=== PATIENT | male | born 1995 | race Caucasian/White ===

== ENCOUNTER 2017-10-25 17:15 | Emergency (ER) | payer OTHER ==
[~2017-10-25] VITALS: Ht 185.4 cm; Wt 84.0 kg
[2017-10-25] MEDS ORDERED: METOCLOPRAMIDE HCL 10 MG/2 ML VIAL IV PUSH ONE (17:30)
[2017-10-25] MEDS ORDERED: MORPHINE SULFATE 4 MG/ML INJ IV PUSH ONE (17:30)
[2017-10-25] MEDS ORDERED: PROPOFOL 200 MG/20 ML AMP IV ONE (17:30)
[2017-10-25 17:32] VITALS: BP 128/71; PULSE 73; RESP 16; TEMP 97.9; O2SAT 100
[2017-10-25] MEDS ORDERED: ADVA100A INH (17:37)
--- NOTE | 2017-10-25 18:14 | RADRPT ---
EXAM DATE: 10/25/2017 5:58 PM EDT AGE/SEX: 22 years / Male INDICATIONS: Right knee pain, injured while skim boarding. CLINICAL DATA: This is the patient's initial encounter. Patient reports that signs and symptoms have been present for 1 day and indicates a pain score of 10/10. MEDICAL/SURGICAL HISTORY: None. None. COMPARISON: No comparison studies are available. FINDINGS: AP and lateral views of the right knee demonstrate no acute fracture. Mineralization is normal. The p atella appears laterally displaced on the oblique frontal projection. No joint effusion is identified . There is prepatellar soft tissue swelling. No radiopaque foreign body is identified. Some type of o verlying bandages are present posteriorly. CONCLUSION: Lateral dislocation of the patella with prepatellar soft tissue swelling. No fracture is identified. Electronically signed by: Alfredo Rollins MD 10/25/2017 6:13 PM EDT
[2017-10-25] MEDS ORDERED: HYDROmorphone HCL PF 2 MG/ML VIAL IV PUSH ONE (18:15)
--- NOTE | 2017-10-25 18:40 | PD ---
Data Data Last Documented VS Vital Signs Date Time Temp Pulse Resp B/P (MAP) Pulse Ox O2 Delivery O2 Flow Rate FiO2 10/25/17 17:32 97.9 73 16 128/71 (90) 100 Room Air Orders Orders Knee, Ltd (1 Or 2vws) (10/25/17 17:29) Ice/Cold Pack (10/25/17 17:29) Morphine Inj (Morphine Inj) (10/25/17 17:30) Metoclopramide Inj (Reglan Inj) (10/25/17 17:30) Propofol 200 Mg/20 Ml Inj (Diprivan 200 (10/25/17 17:30) Iv Access Insert/Monitor (10/25/17 17:30) Hydromorphone Pf Inj (Dilaudid Pf Inj) (10/25/17 18:15) Knee, Ltd (1 Or 2vws) (10/25/17 ) Splint Or Brace Apply/Monitor (10/25/17 18:32) Crutches (10/25/17 18:40) MDM Medical Record Reviewed: Yes Supervised Visit with JESUS: Yes Narrative Course I, Dr. Shaikh, have reviewed the advance practice practitioner's documentation and am in agreement, met with the patient face to face, made the diagnosis, and the medical decision making was done by me. *My assessment and Findings: Patient is a 22-year-old male who [place], presents the emergency room complaints of right knee pain. Patient with dislocation of the patella in the right lower extremity. Last Impressions Knee X-Ray 10/25/17 7219 Signed Impressions: CONCLUSION: Lateral dislocation of the patella with prepatellar soft tissue swelling. No fr acture is identified. After informed consent, verbal as well as written consent for conscious sedation and reduction of patella was obtained. Patient has a successful reduction of the patella. Procedures Procedure Narrative After the risks and benefits were discussed the following procedure was performed: MODERATE SEDATION: The patient was placed on a monitor tech and pulse oximetry. An ambu bag and suction was immediately available at bedside. The patient was monitored by the nurse. Oxygen saturation , heart rate and blood pressure were monitored. Procedural sedation was acheived using 90mg of propofol . The patient was observed until awake and alert. Procedural Sedation time in attendance was 15 minutes. Reduction of right patella After risks and benefits were discussed with the patient, patient was sedated with propofol, reduction of patella was performed - patella was laterally dislocated - it was reduced without difficultly, patient tolerated procedure well Diagnosis Primary Impression: Patellar dislocation Qualified Codes: S83.004A - Unspecified dislocation of right patella, initial encounter Patient Instructions: Narcotic given in the ED, Moderate Sedation (ED), General Instructions Additional Instruction: Please provide patient with a copy of his studies at discharge Please follow up with your primary care doctor in 2-3 days Return to the ER if symptoms worsen or progress Return to the ER as needed Follow up with orthopedic surgery Karen Shaikh DO Oct 25, 2017 18:40
[2017-10-25] MEDS ORDERED: DICL75TA PO (18:59)
--- NOTE | 2017-10-25 19:07 | RADRPT ---
EXAM DATE: 10/25/2017 7:01 PM EDT AGE/SEX: 22 years / Male INDICATIONS: Status post reduction. CLINICAL DATA: This is the patient's subsequent encounter. Patient reports that signs and symptoms h ave been present for 1 day and indicates a pain score of 2/10. MEDICAL/SURGICAL HISTORY: None. None. [place] [facility] [place]1 OR 2 VWS[place] 10/25/2017. . FINDINGS: AP and lateral views of the right leg with overlying splint in place demonstrates reduction of the pa tellar dislocation. Patella now overlies the midline. No fracture is identified. There is a small wil nt effusion. Mild prepatellar soft tissue swelling remains present. There is likely an osteochondral lesion in the medial femoral condyle. CONCLUSION: 1. Interval reduction of the patellar dislocation. No acute fracture is identified. Stable mild prep atellar soft tissue swelling is present. 2. There is a small joint effusion. 3. Suspected osteochondral lesion in the medial femoral condyle. Electronically signed by: Alfredo Rollins MD 10/25/2017 7:06 PM EDT
--- NOTE | 2017-10-25 19:14 | PD ---
HPI Chief Complaint: Injury Time Seen by Provider: 17:29 Travel History International Travel<30 days: No Contact w/Intl Traveler<30days: No Traveled to known affect area: No History of Present Illness HPI 22-year-old male that presents to the ED for evaluation of his right knee. Patient had a fall while skim boarding and his leg went the wrong way. Pain is 8 /10. Nothing given by ambulance. Obvious deformity noted on knee. Brought by [facility] on backboard and splint. Denies any other injury. No prior injury. History of asthma. No radiation of the pain. PFSH Past Medical History Asthma: Yes Past Surgical History Other Surgery: Yes (NOSE ) Social History Alcohol Use: No Tobacco Use: No Substance Use: No Allergies-Medications (Allergen,Severity, Reaction): Coded Allergies: No Known Allergies (Unverified , 10/25/17) Reported Meds & Prescriptions Reported Meds & Active Scripts Active Diclofenac Sodium DR (Diclofenac Sodium) 75 Mg Tabdr 75 Mg PO BID PRN Reported Advair Diskus Inh (Fluticasone-Salmeterol Inh) 100-50 Mcg/Blist Aer 1 Puff INH BID Rinse mouth after use. Review of Systems Except as stated in HPI: all other systems reviewed are Neg Physical Exam Narrative GENERAL: SKIN: Warm and dry. HEAD: Atraumatic. Normocephalic. EYES: Pupils equal and round. No scleral icterus. No injection or drainage. ENT: No nasal bleeding or discharge. Mucous membranes pink and moist. NECK: Trachea midline. No JVD. CARDIOVASCULAR: Regular rate and rhythm. RESPIRATORY: No accessory muscle use. Clear to auscultation. Breath sounds equal bilaterally. GASTROINTESTINAL: Abdomen soft, non-tender, nondistended. Hepatic and splenic margins not palpable. MUSCULOSKELETAL: Extremities without clubbing, cyanosis, or edema. No obvious deformities. Has obvious abnormality on the right knee with patella deformity and soft tissue swelling. Very tender to touch. 2+ pulses bilaterally. NEUROLOGICAL: Awake and alert. No obvious cranial nerve deficits. Motor grossly within normal limits. Five out of 5 muscle strength in the arms and legs. Normal speech. PSYCHIATRIC: Appropriate mood and affect; insight and judgment normal. Data Data Last Documented VS Vital Signs Date Time Temp Pulse Resp B/P (MAP) Pulse Ox O2 Delivery O2 Flow Rate FiO2 10/25/17 17:32 97.9 73 16 128/71 (90) 100 Room Air Orders Orders Knee, Ltd (1 Or 2vws) (10/25/17 17:29) Ice/Cold Pack (10/25/17 17:29) Morphine Inj (Morphine Inj) (10/25/17 17:30) Metoclopramide Inj (Reglan Inj) (10/25/17 17:30) Propofol 200 Mg/20 Ml Inj (Diprivan 200 (10/25/17 17:30) Iv Access Insert/Monitor (10/25/17 17:30) Hydromorphone Pf Inj (Dilaudid Pf Inj) (10/25/17 18:15) Knee, Ltd (1 Or 2vws) (10/25/17 ) Splint Or Brace Apply/Monitor (10/25/17 18:32) Crutches (10/25/17 18:40) Ed Discharge Order (10/25/17 19:05) MDM Medical Decision Making Medical Screen Exam Complete: Yes Emergency Medical Condition: Yes Medical Record Reviewed: Yes Interpretation(s) Last Impressions Knee X-Ray 10/25/17 1729 Signed Impressions: CONCLUSION: Lateral dislocation of the patella with prepatellar soft tissue swelling. No fr acture is identified. Knee X-Ray 10/25/17 0000 Signed Impressions: CONCLUSION: 1. Interval reduction of the patellar dislocation. No acute fracture is identi fied. Stable mild prepatellar soft tissue swelling is present. 2. There is a small joint effusion. 3. Suspected osteochondral lesion in the medial femoral condyle. Differential Diagnosis fracture vs dislocation vs sprain Narrative Course 22 yo male here for evaluation of right knee injury. xrays ordered and showed dislocation. Given pain meds. My attending Dr Shaikh made aware of findings. recommends conscious sedation. Please refer to her note. After a few attempts by my attending, myself and vocational rehabilitation technician, knee was reduced. Splint placed. Given crutches. F/u with ortho counceled. See ED if worst. Prescription for diclofenac sodium. Diagnosis Primary Impression: Patellar dislocation Qualified Codes: S83.004A - Unspecified dislocation of right patella, initial encounter Referrals: Abdoulaye Marcus MD Patient Instructions: General Instructions, Narcotic given in the ED, Moderate Sedation (ED) Additional Instructions: Please provide patient with a copy of his studies at discharge Please follow up with your primary care doctor in 2-3 days Return to the ER if symptoms worsen or progress Return to the ER as needed Follow up with orthopedic surgery Scripts Diclofenac Sodium DR (Diclofenac Sodium DR) 75 Mg Tabdr 75 MG PO BID Y for PAIN SCALE 1 TO 10, #20 TAB 0 Refills Prov: Karen Shaikh Abdi JOHNSTON 10/25/17 Disposition: 01 DISCHARGE HOME Condition: Stable Miguel Savage Oct 25, 2017 19:14
== END 2017-10-25 20:10 | disposition home or self-care (01) ==
LOC: NEPC 17:15
DX: S83.004A Unspecified dislocation of right patella, initial encounter (principal); J45.909 Unspecified asthma, uncomplicated; W19.XXXA Unspecified fall, initial encounter; Z79.51 Long term (current) use of inhaled steroids
CPT/HCPCS: 27550; 73560; 96374; 96375; 99152; 99284; E0113; J1170; J2270; J2765; L1830